=== PATIENT | female | born 1975 | race Caucasian/White ===

== ENCOUNTER 2022-01-27 08:12 | Outpatient (RCR) | payer OTHER, SELFPAY ==
--- NOTE | 2022-02-23 12:26 | ONC.NURNOTE ---
Patient called and states that she is out of tamoxifen and needs a refill. She confirmed that she is taking 20mg BID, and would like the prescription to go to [facility].
== END 2022-07-26 23:59 | disposition home or self-care (01) ==
LOC: CCIC 08:12
PROVIDERS: PCP Family Medicine; Visit Provider Nurse Practitioner Family
DX: C50.912 Malignant neoplasm of unspecified site of left female breast (principal); Z17.0 Estrogen receptor positive status [ER+]; Z79.810 Long term (current) use of selective estrogen receptor modulators (SERMs)
CPT/HCPCS: 99212; 99214

== ENCOUNTER 2022-09-11 13:42 | Outpatient (CLI) | payer OTHER, SELFPAY ==
--- NOTE | 2022-09-11 14:00 | CRLHL7_ITS ---
For Patients: As a result of the Century Cures Act, medical imaging exams and procedure reports are released immediately into your electronic medical record. You may view this report before your referring provider. If you have questions, please contact your health care provider. BILATERAL SCREENING MAMMOGRAM WITH COMPUTER-AIDED DETECTION AND TOMOSYNTHESIS TECHNIQUE: CC and MLO views were obtained. These mammographic images have been obtained using full-field digital technique. These mammographic images were interpreted with the benefit of computer-aided detection. Breast tomosynthesis was used in this interpretation. COMPARISON FILM: 05/27/21, 05/21/20, 05/20/19. FINDINGS: There are scattered areas of fibroglandular density. IMPRESSION: There is no radiographic evidence for malignancy. ASSESSMENT: BI-RADS Category 2: Benign RECOMMENDATION: Routine screening mammogram in 1 year. A lay language report of this examination will be provided to the patient. SHELTON JENSEN M.D. Diagnostic Radiologist [email or web address] Transcribed: 09/13/2022, 11:[address]/Dictated by: Shelton Jensen MD @ 09/12/2022 12:48:00 PM (Electronically Signed)
== END 2022-09-11 13:43 | disposition home or self-care (01) ==
LOC: MAMMO 13:49
PROVIDERS: PCP Family Medicine; Visit Provider Nurse Practitioner Family
DX: Z12.31 Encounter for screening mammogram for malignant neoplasm of breast (principal)
CPT/HCPCS: 77063; 77067

== ENCOUNTER 2022-12-22 07:09 | Day surgery (SDC) | payer OTHER, SELFPAY ==
[2022-12-22] VITALS (11 sets, daily range): BP systolic 106–126; BP diastolic 66–82; PULSE 42–82; RESP 12–16; TEMP 36.1–36.4; O2SAT 94–100; BMI 25.4
[2022-12-22] MEDS: LACTATED RINGERS 1000 ML 1,000 ML 100 ML IV (08:00)
[2022-12-22 08:20] LABS: Ur HCG Qualitative* Negative (Negative)
[2022-12-22] MEDS: COCAINE HCL 4 % 4 ML SOLUTION NOSTRIL-B (09:10)
[2022-12-22] MEDS: MUPIROCIN 1 GM PACKET 1 APPLIC TOPICAL (09:10)
--- NOTE | 2022-12-22 09:10 | W.ANESCHARGE ---
Anesthesia Charges Start Date/Time Anesthesia Start Date: 12/22/22 Anesthesia Start Time: 08:56 Stop Date/Time Anesthesia Stop Date: 12/22/22 Anesthesia Stop Time: 09:28
--- NOTE | 2022-12-22 09:29 | W.ANESCHARGE ---
Anesthesia Charges Start Date/Time Anesthesia Start Date: 12/22/22 Anesthesia Start Time: 08:56 Stop Date/Time Anesthesia Stop Date: 12/22/22 Anesthesia Stop Time: 09:28
--- NOTE | 2022-12-22 09:50 | W.PM.ENTPROC ---
Procedure Note Date of procedure: 12/22/22 Procedure: Preoperative diagnosis depressed right nasal fracture Postoperative diagnosis same Procedure closed reduction nasal fracture with internal external fixation Under general endotracheal anesthesia patient was prepped and draped usual fashion. The nose was decongested with cocaine pledgets. The septum was slightly deflected to the left and this was reviewed a lies by simply opening the nasal speculum. Merocel pack was placed on this side. The fracture was marked externally with the fracture elevator and the fracture elevator was inserted into the nose and the nasal fracture elevated. This was a relatively unstable fracture. Two pieces a Merocel will placed beneath the fracture line. An external dressing consisting of benzoin and Steri tape was applied. The patient procedure well was taken recovery in satisfactory condition blood loss less than 25 mL. Surgeon: Ariel Winter MD
[2022-12-22] MEDS: ACETAMINOPHEN 325 MG TABLET PO (10:16)
[2022-12-22] MEDS: IBUPROFEN 200 MG TABLET PO (10:17)
== END 2022-12-22 11:07 | disposition home or self-care (01) ==
PROVIDERS: PCP Family Medicine; Visit Provider Otolaryngology
PROC: 0NSBXZZ Reposition Nasal Bone, External Approach (ICD-10-PCS; CPT 21320; principal; 2022-12-22 08:30)
DX: S02.2XXA Fracture of nasal bones, initial encounter for closed fracture (principal)
CPT/HCPCS: 21320; 00160; 81025; A9270; J0330; J1100; J2250; J2405; J2704; J3010; J7120

== ENCOUNTER 2023-01-25 08:05 | Outpatient (RCR) | payer OTHER, SELFPAY ==
[2023-01-25 08:26] LABS: Basophils Absolute Auto 0.04 K/uL (0.00-0.30); Basophils Percent Auto 0.6 % (0.0-3.0); Eosinophils Absolute Auto 0.16 K/uL (0.00-0.50); Eosinophils Percent Auto 2.4 % (0.0-7.0); Hematocrit 38.7 % (33.0-51.0); Hemoglobin* 12.4 gm/dL (12.0-16.0); Immature Granulocytes Abs Auto 0.05 K/uL (0.00-0.30); Immature Granulocytes Pct Auto 0.7 %; Lymphocytes Absolute Auto 1.92 K/uL (0.90-2.90); Lymphocytes Percent Auto 28.5 % (20-44); Mean Corpuscular HGB Conc 32 gm/dL (32-36); Mean Corpuscular Hemoglobin 29 pg (26-34); Mean Corpuscular Volume 89 fL (80-100); Monocytes Percent Auto 11.7 % (0.0-11.0); Neutrophils Absolute Auto 3.77 K/uL (1.7-7.0); Neutrophils Percent Auto 56.1 % (42.0-72.0); Platelet Count* 190 K/uL (140-440); RDW Coefficient of Variation % 12.2 % (11.5-15.5); Red Blood Count 4.33 m/uL (4.00-5.20); White Blood Count* 6.73 K/uL (4.50-11.00)
[2023-01-25 08:33] LABS: Slide Review Reflex No
[2023-01-25 10:02] LABS: Albumin* 3.8 g/dL (3.3-5.0); Chloride* 107 mmol/L (96-114); Potassium* 4.7 mmol/L (3.6-5.1); Sodium* 139 mmol/L (135-149)
[2023-01-25 10:05] LABS: Alkaline Phosphatase* 82 U/L (40-150); Anion Gap 5 mEq/L (7-15); Aspartate Amino Transferase* 31 U/L (12-35); Bilirubin Total* 0.2 mg/dL (0.1-1.5); Blood Urea Nitrogen* 12 mg/dL (5-24); Carbon Dioxide* 27 mmol/L (20-32); Creatinine* 0.7 mg/dL (0.5-1.5); Est. Creatinine Clearance* 87.64; Estimated Glomerular Filt Rate 109 ml/min; Glucose* 83 mg/dL (60-115); Total Protein* 6.8 g/dL (6.0-8.3)
[2023-01-25 10:06] LABS: Alanine Aminotransferase* 21 U/L (4-35)
== END 2023-07-24 23:59 | disposition home or self-care (01) ==
LOC: CCIC 08:05
PROVIDERS: PCP Family Medicine; Visit Provider Physician Assistant
DX: C50.912 Malignant neoplasm of unspecified site of left female breast (principal); Z17.0 Estrogen receptor positive status [ER+]; Z79.810 Long term (current) use of selective estrogen receptor modulators (SERMs); R23.2 Flushing
CPT/HCPCS: 36415; 80053; 85025; 99212; 99214; 99215

== ENCOUNTER 2023-03-22 10:36 | Day surgery (SDC) | payer OTHER, SELFPAY ==
[2023-03-22] VITALS (11 sets, daily range): BP systolic 104–133; BP diastolic 70–94; PULSE 53–79; RESP 12–20; TEMP 35.5–36.6; O2SAT 96–99; BMI 25.7
--- NOTE | 2023-03-22 11:38 | CRLHL7_ITS ---
For Patients: As a result of the Century Cures Act, medical imaging exams and procedure reports are released immediately into your electronic medical record. You may view this report before your referring provider. If you have questions, please contact your health care provider. INDICATION: Vaginal bleeding and cramping TECHNIQUE: Ultrasound pelvis transvaginal for better assessment or to better visualize the endometrium. Real-time sonographic images with spectral and color Doppler imaging of the ovaries were obtained. COMPARISON: None FINDINGS: Uterus: 11.1 x 6.9 x 8.2 cm. Normal echotexture of the myometrium. No masses. Endometrium: Transvaginal imaging was performed to better evaluate the endometrium. Endometrial thickness measures 29 mm. Heterogeneous with multiple cystic areas within the endometrial cavity with some irregular vascularity. Right ovary measures 3.3 x 2.8 x 2.1 cm and left ovary measures 3.7 x 1.7 x 1.9 cm. Hypoechoic avascular lesion in the right ovary measuring 1.7 centimeters. Normal blood flow is demonstrated in both ovaries. Cul-de-sac: No significant free fluid. IMPRESSION: 1. Markedly thickened endometrium measuring 29 millimeters with irregular cystic areas and increased vascularity. In a non patient, the differential diagnosis includes endometrial hyperplasia. In the setting of vaginal bleeding, follow-up endometrial biopsy suggested. 2. Normal bilateral ovarian blood flow with mildly complex right ovarian cyst, proteinaceous versus hemorrhagic cyst. Dictated by Roger Banerjee MD @ 03/22/2023 1:07:10 PM (Electronically Signed)
--- NOTE | 2023-03-22 11:40 | ED_ITS ---
HPI - General Adult General Time Seen by Provider: 11:40 Date Seen: 03/22/23 Chief complaint: Vaginal Bleeding Stated complaint: Severe menstrual cramps, bleeding Time Seen by Provider: 03/22/23 11:09 History of Present Illness HPI narrative: This is a pleasant 47-year-old female with a past medical history of left breast cancer (status post lumpectomy and 5 years of tamoxifen therapy, now thought to be in remission, DCed tamoxifen in about 2 months ago). She has no previous history of abdominal or gynecological surgery. The she does have a history of irregular menstrual cycles dating back most of her life. While on tamoxifen for the past 5 years she had had very infrequent and light., maybe once or twice a year. She stopped the tamoxifen in January and February. She did have 1. Last month it was pretty light. Her current period started yesterday. Overnight bleeding was heavier than normal. This morning she is having pretty bad bleeding and cramping. She is soaking through a light pad every 1/2 hour or so. She is not having any clots. The bloody is mostly bright red. No other vaginal discharge. No fever. She was having lower abdominal cramping but took an extra dose of Tylenol less than hour prior to arrival and is now feeling better. She still having some cramping but it is tolerable. She is not lightheaded. She does note she has an unexplained bruise on her left lateral upper arm. No other recent unusual bleeding or bruising. She does not take any blood thinners. She takes the vitamins but no other prescription medications currently. Per medical record, she side oncology in follow-up on 01/25, records from [facility] Stage IA infiltrating ductal carcinoma diagnosed in 2018 Oncology Hx: 1. 06/14/2017 Patient presented to medical attention for a tender lump in her left upper breast which she noticed on Sunday06/10/17 while dressing. Physical exam at that time was notable for an approximately 1.5 x 1.5 cm soft, mobile, slightly tender lump in the superior aspect of left breast at approximately the 11 o'clock position. A left breast ultrasound was recommended. 2. 06/15/2017 mammogram showed a spiculated mass in the posterior 9 to 10 o ?clock position of the left breast measuring approximately 10-11 mm located 11 cm from the nipple on the MLO projection. An asymmetry was also identified in the posterior right breast on the MLO projection just superior to the posterior nipple line, but did not persist on the spot compression MLO or ML projections and was not seen on the exaggerated CC lateral projection of the right breast. 3. 06/15/2017 Follow up ultrasound was notable for a 10 x 9 x 10 mm spiculated, hypoechoic shadowing mass at the 10 o?clock position 7 cm from the nipple, BIRADS 4, suspicious. Biopsy was recommended. 4. 06/18/2017 Stereotactic core needle biopsy was performed. Pathology returned invasive ductal carcinoma, grade II of III without angiolymphatic invasion, but associated solid type DCIS, ER positive, 99%, NV positive, 56%, and HER-2 1+ (negative). 5. 06/27/2017 MRI of the breasts was notable for a 1.6 x 0.8 x 1.4 cm irregular marginated, enhancing mass in the left breast 10 o`clock position, middle to posterior depth, reflecting the biopsied cancer. No additional suspicious findings were seen in either breast. No morphologically abnormal axillary lymph nodes or internal mammary lymph nodes were seen either. BRCA testing was done and was negative 6. 08/02/2017 Patient underwent L breast lumpectomy and SLND. Pathology returned a 1.3 cm [place] grade II invasive ductal carcinoma with associated ductal carcinoma in situ, nuclear grade 3, with focal necrosis. No lymphovascular was seen. 0/4 lymph nodes were positive, Estrogen receptor positive (99%). ~Progesterone receptor positive (56%). ~HER2 by IHC negative (1+). ~pT1c pN0 stage IA. 9. ~August 19, 2017: ~Consultation for recommendations regarding adjuvant treatment and an OncotypeDX test was ordered. The RS score resulted 22. A mutual decision was made not to pursue adjuvant cytotoxic chemotherapy as part of her treatment 10. 10/01/2017 the patient started radiation and completed all treatment on 10/26/2017. She was subsequently started on tamoxifen. 11. Seen in follow up on and started on oxybutinin for hot flashes. Interval Hx: Patient presents today for routine surveillance of her stage I A breast cancer. She has now completed 5 years of adjuvant tamoxifen, which she is currently taking at a 40 mg daily dose. She is also taking oxybutynin for hot flashes. No breast changes, new pain or headaches. No change in bowel or bladder. No new cough or change in breathing. She is recovering from recent bronchitis. No edema or chest pain. No weight loss or loss of appetite. She quit smoking 20 years ago. Minimal alcohol use. 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 She has a 7-year-old and a 15-year-old. She has a very supportive . She is ready of fruits and vegetables. Does not currently consume tree nuts. Last period was 2 months ago; light bleeding and lasted for 1-2 days. PLAN: * Has completed 5 years of tamoxifen. Discussed options for continuing versus discontinuing endocrine therapy and 5 year elder. Elected to finish the dose of tamoxifen she has at home and then discontinue endocrine therapy at this time. * Continue annual screening mammograms. Next due 09/2023 * Due for annual pelvic exam. LMP 2 months ago. Discussed monitoring for abnormal uterine bleeding. * Discussed okay to taper off oxybutynin a few weeks after discontinuing tamoxifen. Discussed okay to continue oxybutynin if hot flashes persist after stopping tamoxifen, as hot flashes may then be secondary to menopause. Return to oncology as needed. Related Data Home Medications Medication Instructions Recorded Confirmed glucosamine sulfate 500 mg tablet 500 mg PO QDAY 01/27/22 01/25/23 (Glucosamine) ibuprofen 125 mg-acetaminophen 250 1 tab PO Q8H PRN 01/27/22 01/25/23 mg tablet (Advil Dual Action) multivitamin 1 tab PO QAM 01/27/22 01/25/23 oxybutynin chloride 5 mg tablet 2.5 mg PO BID 01/27/22 01/25/23 Allergies Allergy/AdvReac Type Severity Reaction Status Date / Time No Known Drug Allergies Allergy Verified 12/26/22 11:02 [facility] Medical History (Updated 12/21/22 @ 11:03 by Lisette Barnes MD) Chest wall pain ?R07.89 - Other chest pain (ICD-10) Concussion ?S06.0XAA - Concussion with loss of consciousness status unknown, initial encounter (ICD-10) BRCA negative ?Z13.71 - Encounter for nonprocreative screening for genetic disease carrier status (ICD-10) Surgical History Status post surgical removal of ganglion cyst ?Z98.890 - Other specified postprocedural states (ICD-10) Status post left breast lumpectomy (~08/2017) ?Z98.890 - Other specified postprocedural states (ICD-10) Family History (Updated 12/19/22 @ 14:55 by Michael Chery) Maternal Grandmother Breast cancer, Onset Age: 89 Father Diabetes Myocardial infarction, Onset Age: 53 Social History (Updated 12/19/22 @ 14:56 by Michael Chery) Narrative: does not have regular exercise regimen , 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, 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 consumes alcohol Smoking Status: Former smoker Do you use any of these nicotine containing products: None Second hand tobacco smoke exposure: No How often do you have a drink containing alcohol: never How often do you have six or more drinks on one occasion: Never AUDIT-C Alcohol total score: 0 Non-prescribed substance use: denies use Caffeine: Yes Are you using contraception or practicing any form of control: No service: No Exam Narrative: Exam Narrative: Constitutional: Appears well-developed and well-nourished. Alert. Conversant. Non toxic. HENT: Head: Atraumatic. Nose: Nose normal. Mouth/Throat: Oral mucosa is clear and moist. no trismus. Pharynx normal. Tonsils symmetric. No tonsillar enlargement, erythema, or exudate. Eyes: Conjunctivae normal, not pale. EOM normal. Pupils equal, round, and reactive to light. No scleral icterus. Neck: Normal range of motion. Neck supple. No tracheal deviation present. Cardiovascular: Normal rate, regular rhythm. No gallop. No friction rub. No murmur heard. Symmetric radial artery pulses Pulmonary/Chest: Effort normal. No stridor. No respiratory distress. No wheezes. No rales. No rhonchi . No tenderness. Abdominal: Soft. Bowel sounds normal. No distension. No mass. Suprapubic and bilateral lower quadrant tenderness. No rebound. No guarding. No CVA tenderness. No upper tenderness. Musculoskeletal: RUE: Normal range of motion. No tenderness. No deformity LUE: Normal range of motion. No tenderness. No deformity RLE: Normal range of motion. No edema. No tenderness. No deformity LLE: Normal range of motion. No edema. No tenderness. No deformity Neurological: Alert and oriented to person, place, and time. Normal strength. CN II-VII intact. No sensory deficit. GCS eye subscore is 4. GCS verbal subscore is 5. GCS motor subscore is 6. Normal coordination Skin: Skin is warm and dry. No rash noted. No pallor. Normal risk capillary refill. Psychiatric: Normal mood. Normal affect. Const: Vital Signs, click to edit/add: Vital Signs - 24 hr 03/22/23 10:45 03/22/23 13:00 Temperature 98 F Pulse Rate 70 Pulse Rate [Pulse Oximeter] 67 Respiratory Rate 18 12 Blood Pressure 121/70 Blood Pressure [Ri ght Upper Arm] 133/94 H Pulse Oximetry 97 99 Oxygen Delivery Me thod Room Air Course Course ED Course: Recheck- at bedside now. Patient is hemodynamically stable. Still having ongoing bleeding. [employer] than at home but has changed her pad twice in 3 hours since she has arrived here. Reevaluation(s) Reevaluation #1: Recheck-patient blood through her pad and pants and onto the sheets of her bed. Not large volume exsanguinating hemorrhage but heavier than would be expected for usual. Reevaluation #2: Recheck-discussed with Gynecology, Dr. Nunez is. She will come to the ER to evaluate the patient. Reevaluation #3: [id number]. Dr. Lennon process evaluated. She recommends transfer to the OR for D and C. Patient agrees. Will order IV. Vital Signs Vital signs: Initial Vital Signs Temperature 98 F 03/22/23 10:45 Temperature Source Temporal Artery Scan 03/22/23 10:45 Pulse Rate 67 03/22/23 10:45 Pulse Rhythm Regular 03/22/23 10:45 Respiratory Rate 18 03/22/23 10:45 Blood Pressure 133/94 H 03/22/23 10:45 Blood Pressure Mean 107 H 03/22/23 10:45 Blood Pressure Position Supine 03/22/23 10:45 Pulse Oximetry 97 03/22/23 10:45 Oxygen Delivery Method Room Air 03/22/23 10:45 Vital Signs Temperature 98 F 03/22/23 10:45 Pulse Rate 67 03/22/23 10:45 Respiratory Rate 18 03/22/23 10:45 Blood Pressure 133/94 H 03/22/23 10:45 Pulse Oximetry 97 03/22/23 10:45 Oxygen Delivery Method Room Air 03/22/23 10:45 Temperature 98 F 03/22/23 10:45 Pulse Rate 70 03/22/23 13:00 Respiratory Rate 12 03/22/23 13:00 Blood Pressure 121/70 03/22/23 13:00 Pulse Oximetry 99 03/22/23 13:00 Oxygen Delivery Method Room Air 03/22/23 10:45 Medical Decision Making [facility] Narrative Medical decision making narrative: This is a very pleasant 47-year-old female with a past history of stage I A breast cancer who recently completed a 5 year course of tamoxifen. She presents to ER today with heavy vaginal bleeding and cramping. Bleeding heavier than would be expected for her normal menstrual cycle. The presentation she is hemodynamically stable and has signs of good peripheral perfusion on exam but still has some active bleeding. Bleeding here in the ER was ongoing but not as heavy as at home. Initial CBC shows a slight drop in hemoglobin compared to last month, down to 11.4. Labs do not show any evidence for thrombocytopenia or coagulopathy. She is not having any symptoms or concerns for pelvic trauma, STD. test negative. Differential would include dysfunctional uterine bleeding. Given previous tamoxifen use concern is for possible endometrial hyperplasia, fibroids, or structural cause for her vaginal bleeding. Pelvic ultrasound is obtained and does show a very thickened endometrium. Discussed with Gynecology, Dr. Troncoso. She graciously came here to the ER to evaluate the patient. She attempted to perform a pelvic exam and endometrial biopsy here in the ER but was unsuccessful due to the patient's retroverted anatomy. Dr. Lindsey recommends that the patient go to the OR for D and C which would help more definitively control the bleeding and also allow for endometrial sampling and further workup. Patient is in agreement. Patient has no history of heart or lung disease, normal upper airway anatomy. No recent symptoms of COVID or other cardiovascular disease. At this point with reasonable clear subtle confidence I think she is safe to go to the OR. She will be monitored by the anesthesia team. Lab Data Labs: Lab Results 03/22/23 03/22/23 Range/Units 12:10 13:17 WBC 8.78 (4.50-11.00) K/uL RBC 4.01 (4.00-5.20) m/uL Hgb 11.4 L (12.0-16.0) gm/dL Hct 35.7 (33.0-51.0) % MCV 89 (80-100) fL MCH 28 (26-34) pg MCHC 32 (32-36) gm/dL RDW Coeff of Madhuri 12.0 (11.5-15.5) % Plt Count 210 (140-440) K/uL Neut % (Auto) 62.0 (42.0-72.0) % Lymph % (Auto) 25.2 (20-44) % Sac % (Auto) 10.5 (0.0-11.0) % Eos % (Auto) 1.7 (0.0-7.0) % Baso % (Auto) 0.5 (0.0-3.0) % Neut # (Auto) 5.45 (1.7-7.0) K/uL Lymph # (Auto) 2.21 (0.90-2.90) K/uL Sac # (Auto) 0.90 (0.00-0.90) K/UL Eos # (Auto) 0.15 (0.00-0.50) K/uL Baso # (Auto) 0.04 (0.00-0.30) K/uL Abs Immat Gran (auto) 0.01 (0.00-0.30) K/uL Imm/Tot Granulo (auto) 0.1 % INR 0.95 (0.91-1.10) Sodium 139 (135-149) mmol/L Potassium 4.0 (3.6-5.1) mmol/L Chloride 101 (96-114) mmol/L Carbon Dioxide 27 (20-32) mmol/L Anion Gap 11 (7-15) mEq/L BUN 7 (5-24) mg/dL Creatinine 0.5 (0.5-1.5) mg/dL Estimated Creat Clear 122.70 Estimated GFR 118 ml/min Glucose 95 (60-115) mg/dL Calcium 8.9 (8.4-10.6) mg/dL Urine Color [place] A (Yellow) Urine Appearance Slightly Cloudy A (Clear) Urine pH 5.5 (5.0-8.5) Ur Specific [place] 1.015 (1.000-1.030) Urine Protein 1+ A (Negative) Urine Glucose (UA) Negative (Negative) Urine Ketones 3+ A (Negative) Urine Blood 3+ A (Negative) Urine Nitrite Negative (Negative) Urine Bilirubin Negative (Negative) Urine Urobilinogen 0.2 (0.2-1.0) Ur Leukocyte Esterase Negative (Negative) Urine RBC >100 A (0-2) Urine WBC 0-2 (0-5) Urine WBC Clumps None (None) Ur Squamous Epith Cells None (None-Few) Urine Bacteria None (None) Urine HCG, Qual Negative (Negative) Imaging Data Pelvic US: Attestation: I have reviewed the pertinent imaging results. Radiologist's impression: IMPRESSION: 1. Markedly thickened endometrium measuring 29 millimeters with irregular cystic areas and increased vascularity. In a non patient, the differential diagnosis includes endometrial hyperplasia. In the setting of vaginal bleeding, follow-up endometrial biopsy suggested. 2. Normal bilateral ovarian blood flow with mildly complex right ovarian cyst, proteinaceous versus hemorrhagic cyst. Discharge Plan Discharge Prescriptions: No Action oxybutynin chloride 5 mg tablet 2.5 mg PO BID glucosamine sulfate [Glucosamine] 500 mg tablet 500 mg PO QDAY Rx Instructions: administer with a meal multivitamin Tablet 1 tab PO QAM Advil Dual Action 125-250 mg tablet 1 tab PO Q8H PRN Follow Up/Referrals: Saul Lopez MD [Primary Care Provider] -
[2023-03-22 12:17] LABS: Basophils Absolute Auto 0.04 K/uL (0.00-0.30); Basophils Percent Auto 0.5 % (0.0-3.0); Eosinophils Absolute Auto 0.15 K/uL (0.00-0.50); Eosinophils Percent Auto 1.7 % (0.0-7.0); Hematocrit 35.7 % (33.0-51.0); Hemoglobin* 11.4 gm/dL (12.0-16.0); Immature Granulocytes Abs Auto 0.01 K/uL (0.00-0.30); Immature Granulocytes Pct Auto 0.1 %; Lymphocytes Absolute Auto 2.21 K/uL (0.90-2.90); Lymphocytes Percent Auto 25.2 % (20-44); Mean Corpuscular HGB Conc 32 gm/dL (32-36); Mean Corpuscular Hemoglobin 28 pg (26-34); Mean Corpuscular Volume 89 fL (80-100); Monocytes Percent Auto 10.5 % (0.0-11.0); Neutrophils Absolute Auto 5.45 K/uL (1.7-7.0); Platelet Count* 210 K/uL (140-440); Red Blood Count 4.01 m/uL (4.00-5.20); White Blood Count* 8.78 K/uL (4.50-11.00)
[2023-03-22 12:33] LABS: Chloride* 101 mmol/L (96-114); Sodium* 139 mmol/L (135-149)
[2023-03-22 12:36] LABS: Creatinine* 0.5 mg/dL (0.5-1.5); Estimated Glomerular Filt Rate 118 ml/min
[2023-03-22 12:37] LABS: Anion Gap 11 mEq/L (7-15); Blood Urea Nitrogen* 7 mg/dL (5-24); Calcium* 8.9 mg/dL (8.4-10.6); Carbon Dioxide* 27 mmol/L (20-32); Glucose* 95 mg/dL (60-115); INR 0.95 (0.91-1.10); Prothrombin Time 13.3 Seconds
[2023-03-22 12:41] LABS: Slide Review Reflex No
[2023-03-22 13:56] LABS: Appearance Urine Slightly Cloudy (Clear); Bilirubin Urine Negative (Negative); Blood Urine 3+ (Negative); Color Urine Pink (Yellow); Glucose Urine Negative (Negative); Ketones Urine 3+ (Negative); Leukocyte Esterase Urine Negative (Negative); Nitrite Urine Negative (Negative); Protein Urine 1+ (Negative); Specific Gravity Urine 1.015 (1.000-1.030); Urobilinogen Urine 0.2 (0.2-1.0); pH Urine 5.5 (5.0-8.5)
[2023-03-22 14:06] LABS: Ur HCG Qualitative* Negative (Negative)
[2023-03-22 14:10] LABS: RBC Urine >100 (0-2); WBC Urine 0-2 (0-5)
[2023-03-22] MEDS: LACTATED RINGERS 1000 ML 1,000 ML 100 ML IV (16:00)
--- NOTE | 2023-03-22 16:02 | PM.GYNCN1 ---
CUSTOMER CARE REPRESENTATIVE - CN: HPI Data of Consult Time Seen by Provider: 15:30 Date Seen: 03/22/23 Patient: [facility] Patient Consult date: 03/22/23 Requesting Physician: Lisandro Chavez MD Primary Care Provider: Saul Lopez MD Consult Narrative Reason for consult: vaginal bleeding Narrative: Calli Lopez is a 47 year old female who presented to the emergency department today complaining of heavy vaginal bleeding. She tells me that the bleeding started around midnight. She has been saturating a maxi pad about every 2 hours if she lies down and does not move around. When she is upright, the blood is pouring out of her. She has passed some small clots. She denies pelvic or low abdominal pain or cramping. She denies chest pain, shortness of breath, headaches, or weakness. 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 No lymphovascular was seen. 0/4 lymph nodes were positive, Estrogen receptor positive (99%). ~Progesterone receptor positive (56%). ~HER2 by IHC negative (1+). ~pT1c pN0 stage IA. She underwent radiation therapy and was treated with tamoxifen for 5 years. She just came off tamoxifen in January. While on the tamoxifen, she still had some light periods, and had 2 episodes of heavy bleeding which were not evaluated. After finishing the tamoxifen, she had a normal light period, and then the current menses which brought her into the emergency department. cc:: CC: Review of Systems Status of ROS: Reports: 6 or more systems reviewed and unremarkable except as noted in History and below [facility] Medical History Chest wall pain ?R07.89 - Other chest pain (ICD-10) Concussion ?S06.0XAA - Concussion with loss of consciousness status unknown, initial encounter (ICD-10) BRCA negative ?Z13.71 - Encounter for nonprocreative screening for genetic disease carrier status (ICD-10) Surgical History Status post surgical removal of ganglion cyst ?Z98.890 - Other specified postprocedural states (ICD-10) Status post left breast lumpectomy (~08/2017) ?Z98.890 - Other specified postprocedural states (ICD-10) Family History Maternal Grandmother Breast cancer, Onset Age: 89 Father Diabetes Myocardial infarction, Onset Age: 53 Social History Narrative: does not have regular exercise regimen , 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, 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 consumes alcohol Smoking Status: Former smoker Do you use any of these nicotine containing products: None Second hand tobacco smoke exposure: No How often do you have a drink containing alcohol: never How often do you have six or more drinks on one occasion: Never AUDIT-C Alcohol total score: 0 Non-prescribed substance use: denies use Caffeine: Yes Are you using contraception or practicing any form of control: No service: No Meds Home Medications and Allergies Home Medications Medication Instructions Recorded Confirmed Type glucosamine sulfate 500 mg tablet 500 mg PO QDAY 01/27/22 01/25/23 History (Glucosamine) ibuprofen 125 mg-acetaminophen 250 1 tab PO Q8H PRN 01/27/22 01/25/23 History mg tablet (Advil Dual Action) multivitamin 1 tab PO QAM 01/27/22 01/25/23 History oxybutynin chloride 5 mg tablet 2.5 mg PO BID 01/27/22 01/25/23 History Allergies Allergy/AdvReac Type Severity Reaction Status Date / Time No Known Drug Allergies Allergy Verified 12/26/22 11:02 CUSTOMER CARE REPRESENTATIVE - Exam Physical Exam: Vital signs: Temp Pulse Resp BP Pulse Ox O2 Del Method 98 F 70 12 121/70 99 Room Air 03/22/23 10:45 03/22/23 13:00 03/22/23 13:00 03/22/23 13:00 03/22/23 13:00 03/22/23 10:45 Constitutional: Constitutional: no acute distress and cooperative Routine Respiratory Exam: Comments: Normal respiratory effort. Routine Abdominal Exam: Abdominal: Present soft; Absent mass or tenderness Routine Exam: Comments: Normal external female genitalia. No lesions noted. On speculum examination, initially, the cervix was nonvisualized. A bimanual exam was performed which demonstrated an enlarged, globular retroflex uterus and an anterior cervix. The speculum was repositioned and the cervix visualized with some difficulty. Dark blood was noted to be extruding from the cervical os. PROCEDURE NOTE: With the patient's verbal consent, the cervix was prepped with 3 Betadine swabs. The posterior lip of the cervix was grasped with single-tooth tenaculum for traction. I attempted to insert a Pipelle through the cervical opening, but met resistance at about 4 cm, presumably at the internal cervical os. I was unable to pass the Pipelle through the internal cervical os. I used an os finder as well, and this was unsuccessful. The attempted endometrial biopsy was then abandoned. All instruments were removed. The patient tolerated the procedure well. CUSTOMER CARE REPRESENTATIVE - Results Labs Labs: Short CBC 03/22/23 Range/Units 12:10 WBC 8.78 (4.50-11.00) K/uL Hgb 11.4 L (12.0-16.0) gm/dL Hct 35.7 (33.0-51.0) % Plt Count 210 (140-440) K/uL BMP 03/22/23 12:10 Sodium 139 Potassium 4.0 Chloride 101 Carbon Dioxide 27 BUN 7 Creatinine 0.5 Glucose 95 Calcium 8.9 Urine 03/22/23 Range/Units 13:17 Urine Color [place] A (Yellow) Urine Appearance Slightly Cloudy A (Clear) Urine pH 5.5 (5.0-8.5) Ur Specific [place] 1.015 (1.000-1.030) Urine Protein 1+ A (Negative) Urine Glucose (UA) Negative (Negative) Imaging Pelvic ultrasound: Attestation: I have reviewed the pertinent imaging results. My impression: Heterogeneous, cystic, thickened endometrial lining measuring 29 mm. Radiologist's impression: [place] [id number] Diagnostic Imaging Report Patient: Calli Lopez MR#: [id number] : 1975 Acct:[id number] Loc: ED Service Date: 03/22/[address]: Ordering Physician: Lisandro Chavez M.D. Date of Service: 03/22/23 Procedure(s): US pelvic transvaginal Accession Number(s): [id number] cc: Lisandro Chavez M.D.; Saul Lopez M.D.~ For Patients: As a result of the 21st Century Cures Act, medical imaging exams and procedure reports are released immediately into your electronic medical record. You may view this report before your referring provider. If you have questions, please contact your health care provider. INDICATION: Vaginal bleeding and cramping TECHNIQUE: Ultrasound pelvis transvaginal for better assessment or to better visualize the endometrium. Real-time sonographic images with spectral and color Doppler imaging of the ovaries were obtained. COMPARISON: None FINDINGS: Uterus: 11.1 x 6.9 x 8.2 cm. Normal echotexture of the myometrium. No masses. Endometrium: Transvaginal imaging was performed to better evaluate the endometrium. Endometrial thickness measures 29 mm. Heterogeneous with multiple cystic areas within the endometrial cavity with some irregular vascularity. Right ovary measures 3.3 x 2.8 x 2.1 cm and left ovary measures 3.7 x 1.7 x 1.9 cm. Hypoechoic avascular lesion in the right ovary measuring 1.7 centimeters. Normal blood flow is demonstrated in both ovaries. Cul-de-sac: No significant free fluid. IMPRESSION: 1. Markedly thickened endometrium measuring 29 millimeters with irregular cystic areas and increased vascularity. In a non patient, the differential diagnosis includes endometrial hyperplasia. In the setting of vaginal bleeding, follow-up endometrial biopsy suggested. 2. Normal bilateral ovarian blood flow with mildly complex right ovarian cyst, proteinaceous versus hemorrhagic cyst. Dictated by Roger Banerjee MD @ 03/22/2023 1:07:10 PM Assessment and Plan Assessment and plan (1) Abnormal vaginal bleeding: Status: Acute (2) Increased endometrial stripe thickness: Status: Acute Plan The patient is hemodynamically stable at this time, but given that she has abnormal heavy vaginal bleeding and a thickened endometrial lining with a history of breast cancer, status post 5 years of tamoxifen therapy, endometrial sampling is indicated to rule out hyperplasia or malignancy. Endometrial biopsy was attempted in the emergency department, but unsuccessful. At this point, I would recommend further evaluation in the operating room. We discussed the relative risks and benefits of hysteroscopy and D&C under monitored anesthesia care and a paracervical block to obtain an endometrial sample and to thin the endometrial lining to decrease the current episode of bleeding. The patient is not a candidate for estrogen or progesterone therapy to slow the bleeding given her breast cancer history (estrogen and progesterone receptor positive). Prior to surgery, I would recommend administration of tranexamic acid 1000 mg IV. The patient and I discussed specific risks of the procedure, including incomplete sampling of the uterine lining, uterine perforation, or hemorrhage. Informed consent was obtained for the surgical procedure. We will do a type and screen prior to surgery. If all goes well, I would anticipate that the patient will be discharged to home this evening. She can follow up in the [facility] in 2 weeks.
--- NOTE | 2023-03-22 16:27 | ED.NURSE ---
Pt to OR.
--- NOTE | 2023-03-22 17:47 | W.PM.GYNPROC ---
Procedure Note Date of procedure: 03/22/23 Pre-op diagnosis: Abnormal heavy uterine bleeding, thickened endometrial lining on ultrasound Post-op diagnosis: same Procedure: Hysteroscopy D&C Submucosal myomectomy/removal of submucosal endometrial mass Anesthesia: MAC and local (Paracervical block) Complications: None Surgeon: Yumiko Troncoso MD Estimated blood loss (mL): 50 Urine Output (mL): 60 Pathology: specimen obtained, sent to pathology (Endometrial mass, likely submucosal fibroid, with endometrial curettings) Condition: stable Disposition: same day Findings: Large mass within the endometrial cavity, dense tissue, consistent with submucosal fibroid. Procedure Description: PREOPERATIVE DIAGNOSIS: 1. Abnormal bleeding. 2. 2.9 cm heterogeneous, cystic endometrial lining by ultrasound 3. History of breast cancer, status post tamoxifen therapy, discontinued in January 2023 POSTOPERATIVE DIAGNOSIS: 1. Abnormal bleeding. 2. 2.9 cm heterogeneous, cystic endometrial lining by ultrasound 3. History of breast cancer, status post tamoxifen therapy, discontinued in January 2023 NAME OF PROCEDURE: 1. Hysteroscopy. 2. D and C 3. Removal of submucosal mass/submucosal myomectomy. SURGEON: Karyna. ANESTHESIA: Monitored anesthesia care and paracervical block. COMPLICATIONS: None.. ESTIMATED BLOOD LOSS: 50 mL. FINDINGS: Large mass within the endometrial cavity, dense tissue, consistent with submucosal fibroid.. PATHOLOGY SPECIMENS: 1. Endometrial mass, likely submucosal fibroid, with endometrial curettings sent as a single specimen. PROCEDURE: After obtaining informed consent, the patient was taken to the operating room where she received monitored anesthesia care. She was prepared and draped in the normal sterile fashion, in the dorsal lithotomy position. An open-sided bivalve speculum was introduced into the vagina and the cervix visualized. The anterior lip of the cervix was grasped with a single-tooth tenaculum for traction. A paracervical block was then administered using a total of 20 mL of a 50/50 mixture of 0.25% Marcaine with epinephrine and 1% lidocaine plain. The cervix was gently dilated to a #6 Hegar dilator. The uterus was gently sounded. Sound length was 11.5 cm. A hysteroscope was then advanced under direct visualization through the cervix into the uterine cavity. Sterile normal saline was used as distending medium. The uterine cavity was carefully inspected with the findings noted above. Pictures were taken for documentation purposes. The TruClear morcellator with soft tissue blade was inserted through the operating channel in the hysteroscope. The morcellator was used to remove the submucosal mass, but this was difficult given the density of the tissue. The soft tissue blade was removed and the dense tissue mini blade was inserted instead. The mass was ultimately removed in its entirety. Some of the pieces were removed using a John stone forceps after the majority of the mass was morcellated. The endometrial lining was then sharply curetted. The hysteroscope was used to take a picture of the endometrial lining following removal of the mass and curettage. The hysteroscope was removed. The tenaculum was removed. There was little bleeding from the tenaculum site, which was controlled with direct pressure sponge stick. All instruments were then removed. The patient tolerated the procedure well. Sponge, lap, needle, and instrument counts reported as correct x2. The patient was taken to the recovery room awake in a stable condition. The brief was done with the surgical assistant certified confirming the procedures and pathology specimens. The patient received 1000 mg tranexamic acid preoperatively.
--- NOTE | 2023-03-22 17:52 | P.ANES_ITS ---
Anesthesia Charges Start Date/Time Anesthesia Start Date: 03/22/23 Anesthesia Start Time: 16:30 Stop Date/Time Anesthesia Stop Date: 03/22/23 Anesthesia Stop Time: 17:47 Summary Emergency: [facility]ER[facility]ER
--- NOTE | 2023-03-22 23:06 | PC.NURSE ---
Nurse note: pt is pleasant and cooperative. VSS on RA; Afebrile. DC documents reviewed with pt and spouse. Right AC IV removed. Independently ambulated off the unit with spouse.
--- NOTE | 2023-03-30 11:27 | SUR.OPER ---
[facility]ified [facility] chart[facility] is [facility] for intra-operative document.
== END 2023-03-22 21:20 | disposition home or self-care (01) ==
LOC: ED 15:45 → SS 16:27 → MEDSURG 17:48
PROVIDERS: Emergency Provider Emergency Medicine; PCP Family Medicine; Visit Provider Obstetrics & Gynecology
PROC: 0UDB8ZZ Extraction of Endometrium, Via Natural or Artificial Opening Endoscopic (ICD-10-PCS; CPT 58558; principal; 2023-03-22 16:00)
DX: N92.0 Excessive and frequent menstruation with regular cycle (principal); R93.89 Abnormal findings on diagnostic imaging of other specified body structures; D25.0 Submucous leiomyoma of uterus; Z85.3 Personal history of malignant neoplasm of breast
CPT/HCPCS: 58563; 00952; 36415; 76830; 80048; 81001; 81025; 85025; 85610; 86850; 86900; 86901; 88305; 99140; 99283; 99285; J1100; J1200; J1885; J2250; J2405; J2704; J3010; J3490; J7120

== ENCOUNTER 2023-12-18 09:07 | Outpatient (CLI) | payer OTHER, SELFPAY ==
--- NOTE | 2023-12-18 09:15 | CRLHL7_ITS ---
For Patients: As a result of the Century Cures Act, medical imaging exams and procedure reports are released immediately into your electronic medical record. You may view this report before your referring provider. If you have questions, please contact your health care provider. BILATERAL SCREENING MAMMOGRAM WITH COMPUTER-AIDED DETECTION AND TOMOSYNTHESIS TECHNIQUE: CC and MLO views were obtained. These mammographic images have been obtained using full-field digital technique. These mammographic images were interpreted with the benefit of computer-aided detection. Breast tomosynthesis was used in this interpretation. COMPARISON FILM: 09/11/22, 05/27/21, 05/21/20. FINDINGS: The breasts are heterogeneously dense, which may obscure small masses. IMPRESSION: There is no radiographic evidence for malignancy. ASSESSMENT: BI-RADS Category 1: Negative RECOMMENDATION: Routine screening mammogram in 1 year. A lay language report of this examination will be provided to the patient. SHELTON JENSEN M.D. Diagnostic Radiologist [email or web address] Transcribed: 3:[address]/Dictated by: Shelton Jensen MD @ 12/18/2023 10:40:00 AM (Electronically Signed)
== END 2023-12-18 09:08 | disposition home or self-care (01) ==
LOC: MAMMO 09:08
PROVIDERS: PCP Family Medicine; Visit Provider Family Medicine
DX: Z12.31 Encounter for screening mammogram for malignant neoplasm of breast (principal); R92.2 Inconclusive mammogram
CPT/HCPCS: 77063; 77067

== ENCOUNTER 2025-01-07 14:28 | Outpatient (CLI) | payer OTHER, SELFPAY ==
--- NOTE | 2025-01-07 15:00 | CRLHL7_ITS ---
For Patients: As a result of the Century Cures Act, medical imaging exams and procedure reports are released immediately into your electronic medical record. You may view this report before your referring provider. If you have questions, please contact your health care provider. BILATERAL DIGITAL SCREENING MAMMOGRAM WITH COMPUTER-AIDED DETECTION AND TOMOSYNTHESIS CLINICAL HISTORY: Routine screening exam. COMPARISON: 12/18/2023, 09/11/2022, 05/27/2021 TECHNIQUE: Digital mammogram in CC and MLO projections including computer-aided detection (CAD). Tomosynthesis was used in this interpretation. BREAST COMPOSITION: There are scattered areas of fibroglandular density. FINDINGS: RIGHT Breast: Focal asymmetric density in the upper outer quadrant 10 cm from the nipple. LEFT Breast: No suspicious findings. IMPRESSION: RIGHT breast asymmetry/mass. RECOMMENDATIONS: Additional mammographic views of the RIGHT breast including 3D spot compression cc/MLO. RIGHT breast ultrasound may also be required. The [facility] will contact the patient. A lay language report of this examination will be provided to the patient. BI-RADS Category 0: Incomplete: Need Additional Imaging Evaluation Dictated by Shelton Dan MD @ 01/08/2025 9:19:33 AM Dictated by: Shelton Dan MD @ 01/08/2025 09:19:37 (Electronically Signed)
== END 2025-01-07 14:29 | disposition home or self-care (01) ==
PROVIDERS: PCP Family Medicine; Visit Provider Nurse Practitioner Family
DX: Z12.31 Encounter for screening mammogram for malignant neoplasm of breast (principal); N63.10 Unspecified lump in the right breast, unspecified quadrant
CPT/HCPCS: 77063; 77067

== ENCOUNTER 2025-01-15 08:18 | Outpatient (CLI) | payer OTHER, SELFPAY ==
--- NOTE | 2025-01-15 08:45 | CRLHL7_ITS ---
For Patients: As a result of the Century Cures Act, medical imaging exams and procedure reports are released immediately into your electronic medical record. You may view this report before your referring provider. If you have questions, please contact your health care provider. DIGITAL DIAGNOSTIC RIGHT MAMMOGRAM USING TOMOSYNTHESIS RIGHT BREAST ULTRASOUND CLINICAL HISTORY: RIGHT breast mass/asymmetry. COMPARISON: 01/07/2025, 12/18/2023, 09/11/2022. TECHNIQUE: Digital RIGHT mammogram in two projections. Tomosynthesis was used in this interpretation. Real-time ultrasound imaging of RIGHT breast with imaging documentation. BREAST COMPOSITION: The breasts are heterogeneously dense, which may obscure small masses. FINDINGS: 3D spot compression CC/MLO RIGHT breast mammogram images submitted. Decreased conspicuity of previously noted asymmetric density. No suspicious calcifications. No adenopathy or architectural distortion. Targeted RIGHT breast ultrasound performed at 8-11 o`clock 10 cm from the nipple. Normal fibroglandular tissue is present. No fibrocystic change or mass. IMPRESSION: No evidence of malignancy. RECOMMENDATIONS: Routine screening mammography. A lay language report of this examination will be provided to the patient. BI-RADS Category 2: Benign Dictated by Shelton Dan MD @ 01/15/2025 10:19:05 AM jj/Dictated by: Shelton Dan MD @ 01/15/2025 10:19:00 AM (Electronically Signed)
--- NOTE | 2025-01-15 09:15 | CRLHL7_ITS ---
For Patients: As a result of the Cures Act, medical imaging exams and procedure reports are released immediately into your electronic medical record. You may view this report before your referring provider. If you have questions, please contact your health care provider. SEE DIGITAL DIAGNOSTIC RIGHT MAMMOGRAM PERFORMED SAME DAY CRL:[email or web address] clark/Dictated by: Shelton Dan MD @ 01/15/2025 10:19:00 AM (Electronically Signed)
== END 2025-01-15 08:19 | disposition home or self-care (01) ==
LOC: MAMMO 08:19
PROVIDERS: PCP Family Medicine; Visit Provider Physician Assistant
DX: N63.10 Unspecified lump in the right breast, unspecified quadrant (principal); R92.8 Other abnormal and inconclusive findings on diagnostic imaging of breast
CPT/HCPCS: 76642; 77065; G0279

== ENCOUNTER 2025-02-19 11:18 | Outpatient (CLI) | payer OTHER, SELFPAY ==
--- NOTE | 2025-02-19 12:42 | P.ANES_ITS ---
Anesthesia Charges Start Date/Time Anesthesia Start Date: 02/19/25 Anesthesia Start Time: 12:05 Stop Date/Time Anesthesia Stop Date: 02/19/25 Anesthesia Stop Time: 12:40 Coding CPT Codes CPT Codes: ALLAN LWR INTST NDFL NOS - 47680 ([id number]) P1 - NORMAL HEALTHY PATIENT, QK - FURNISHINGS CONSERVATOR 2-4 CNCRNT ANES PROC, QX - TOPOLOGY TEACHER SVC W/ MED DIRECTION
--- NOTE | 2025-02-19 12:42 | W.ANESCHARGE ---
Anesthesia Charges Start Date/Time Anesthesia Start Date: 02/19/25 Anesthesia Start Time: 12:05 Stop Date/Time Anesthesia Stop Date: 02/19/25 Anesthesia Stop Time: 12:40 Coding CPT Codes CPT Codes: ALLAN LWR INTST NDHI NOS - 29566 ([id number]) P1 - NORMAL HEALTHY PATIENT, QK - DAIRY EQUIPMENT SPECIALIST 2-4 CNCRNT ANES PROC, QX - CONSERVATION COORDINATOR SVC W/ MED DIRECTION
--- NOTE | 2025-02-19 12:50 | P.ANES_ITS ---
Anesthesia Charges Start Date/Time Anesthesia Start Date: 02/19/25 Anesthesia Start Time: 12:05 Stop Date/Time Anesthesia Stop Date: 02/19/25 Anesthesia Stop Time: 12:40 Coding CPT Codes CPT Codes: ALLAN LWR INTST NDVT NOS - 75225 ([id number]) P1 - NORMAL HEALTHY PATIENT, QX - NIBBLER OPERATOR SVLester W/ MED DIRECTION, QK - TEACHER PRESCHOOL 2-4 CNCRNT ALLAN PROC
--- NOTE | 2025-02-19 12:50 | W.ANESCHARGE ---
Anesthesia Charges Start Date/Time Anesthesia Start Date: 02/19/25 Anesthesia Start Time: 12:05 Stop Date/Time Anesthesia Stop Date: 02/19/25 Anesthesia Stop Time: 12:40 Coding CPT Codes CPT Codes: ALLAN LWR INTST NDNM NOS - 44231 ([id number]) P1 - NORMAL HEALTHY PATIENT, QX - SALES TEAM RECRUITER SVLester W/ MED DIRECTION, QK - COLOR WEIGHER 2-4 CNCRNT ALLAN PROC
== END 2025-02-19 11:19 | disposition home or self-care (01) ==
LOC: OP CLINIC 11:18
PROVIDERS: PCP Family Medicine; Visit Provider Surgery
DX: Z12.11 Encounter for screening for malignant neoplasm of colon (principal); D12.3 Benign neoplasm of transverse colon; D12.0 Benign neoplasm of cecum; D12.2 Benign neoplasm of ascending colon; D12.5 Benign neoplasm of sigmoid colon; K57.30 Diverticulosis of large intestine without perforation or abscess without bleeding
CPT/HCPCS: 00811; 00812; 45385; 81025; 88305; J2704

== ENCOUNTER 2025-03-12 08:05 | Outpatient (CLI) | payer OTHER, SELFPAY | END 2025-03-12 08:06 | disposition home or self-care (01) | LOC: NFLDREF 23:41 | PROVIDERS: PCP Family Medicine; Referring Provider Family Medicine; Visit Provider Physician Assistant | DX: R53.83 Other fatigue (principal) | CPT/HCPCS: 80053; 84443 ==